=== PATIENT | female | born 1955 | race Asian ===

== ENCOUNTER 2025-04-16 22:19 | Emergency (ER) | payer MEDICARE ==
[~2025-04-16] VITALS: Ht 152.4 cm; Wt 50.0 kg
[2025-04-16 22:31] VITALS: O2SAT 98
[2025-04-16 23:48] LABS: BASOPHILS % 0.5 % (0.0-2.0); EOSINOPHILS % 0.2 % (0.0-5.0); HEMATOCRIT. 34.8 % (36.0-48.0); HEMOGLOBIN. 11.0 g/dL (12.0-16.0); LYMPHOCYTES % 10.0 % (20.0-50.0); MEAN PLATELET VOLUME 9.1 fl (7.4-10.4); MONOCYTES % 7.1 % (2.0-8.0); NEUTROPHILS % 82.2 % (40.0-76.0); PLATELET 271 x1000/uL (130-400); RED BLOOD CELL COUNT 4.48 mill/uL (4.2-5.4); RED CELL DISTRIBUTION WIDTH 14.8 % (11.6-14.6)
[2025-04-17] LABS: CREATININE 0.6 mg/dL (0.6-1.0); UREA NITROGEN BLOOD 18 mg/dL (9-23)
[2025-04-17] MEDS: ACETAMINOPHEN 1000MG/100ML 100 ML IV ONE (00:13)
[2025-04-17] MEDS: SODIUM CHLORIDE 0.9% 500 ML IV ONE (00:20)
[2025-04-17] MEDS ORDERED: ACET-2708 MT (04:20)
[2025-04-17 04:31] VITALS: BP 146/76; PULSE 62; RESP 16; TEMP 36.1; O2SAT 95
== END 2025-04-17 04:30 | disposition home or self-care (01) ==
LOC: ER 22:19
DX: S09.90XA Unspecified injury of head, initial encounter (principal); M54.6 Pain in thoracic spine; M54.50 Low back pain, unspecified; I10 Essential (primary) hypertension; W10.0XXA Fall (on)(from) escalator, initial encounter; Y93.89 Activity, other specified; Y92.89 Other specified places as the place of occurrence of the external cause; Y99.8 Other external cause status
CPT/HCPCS: 99285; 80048; 85025; 36415; 70450; 96365; 72125; 72128; 72131; J7040; A4606; J0131